=== PATIENT | female | born 1950 | race Caucasian/White ===

== ENCOUNTER → 2017-02-17 | Outpatient (CLI) | payer MEDICARE | END | disposition home or self-care (01) | LOC: PCVCCLINIC 12:59 | PROVIDERS: ATTEND Internal Medicine Cardiovascular Disease | DX: I25.10 Atherosclerotic heart disease of native coronary artery without angina pectoris (principal); E78.00 Pure hypercholesterolemia, unspecified; I10 Essential (primary) hypertension; M19.90 Unspecified osteoarthritis, unspecified site; I45.89 Other specified conduction disorders; Z90.49 Acquired absence of other specified parts of digestive tract; Z96.653 Presence of artificial knee joint, bilateral; Z96.642 Presence of left artificial hip joint; Z87.891 Personal history of nicotine dependence; Z79.82 Long term (current) use of aspirin | CPT/HCPCS: 36415; 93005; G0463 ==

== ENCOUNTER → 2017-02-19 | Outpatient (CLI) | payer MEDICARE ==
--- NOTE | 2017-02-19 15:56 | PCVCIMAG ---
APPROVED REPORT Study performed: 02/19/2017 14:39:26 EXAM: Comprehensive 2D, Doppler, and color-flow Echocardiogram Patient Location: Echo lab Status: routine BSA: 2.17 HR: 70 bpmBP: 136/86 mmHg Rhythm: NSR Risk Factors: Cardiac Risk Factors: HTN, Hyperlipidemia Indications Pre-Op Dyspnea CAD 2D Dimensions LVEF(%): 47.44 (>50%) IVSd: 7.23 (7-11mm)LVOT Diam: 25.64 (18-24mm) LVDd: 51.37 mm PWd: 7.11 (7-11mm)Ascending Ao: 32.82 (22-36mm) LVDs: 39.07 (25-40mm) Left Atrium: 29.88 (27-40mm) Aortic Root: 29.12 mm LV Single Plane 4CH: 52.79 % LV Single Plane 2CH: 53.63 %Carranza's LVEF: 53.21 % Biplane EF: 53.6 % Volumes Left Atrial Volume (Systole) Single Plane 4CH: 27.33 mLSingle Plane 2CH: 48.50 mL Biplane LA Volume: 38.00 mLLA ESV Index: 18.00 mL/m2 Aortic Valve AoV Peak Bossman.: 1.26 m/s AO Peak Gr.: 6.36 mmHgLVOT Max P.18 mmHg LVOT Max V: 1.14 m/s SUZAN Vmax: 4.66 cm2 Mitral Valve E/A Ratio: 0.7 MV Decel. Time: 205.53 ms MV E Max Bossman.: 0.54 m/s MV A Bossman.: 0.79 m/s IVRT: 83.04 ms TDI E/Lateral E': 13.50E/Medial E': 6.00 Medial E' Bossman.: 0.09 m/s Lateral E' Bossman.: 0.04 m/s Pulmonary Valve PV Peak Bossman.: 0.72 m/sPV Peak Gr.: 2.09 mmHg Pulmonary Vein P Vein S: 0.50 m/sP Vein A: 0.30 m/s P Vein D: 0.47 m/sP Vein A Dur.: 72.7 msec P Vein S/D Ratio: 1.06 Tricuspid Valve TR Peak Bossman.: 1.22 m/s TR Peak Gr.: 5.94 mmHg TV Vmax: 0.49 m/sPA Pressure: 13.00 mmHg Left Ventricle The left ventricle is normal size. There is normal LV segmental wall motion. There is normal left ventricular wall thickness. Left ventricular systolic function is normal. The left ventricular ejection fraction is within the normal range. LVEF is 50-55%. Grade I - abnormal relaxation pattern. Right Ventricle The right ventricle is normal size. The right ventricular systolic function is normal. Atria The left atrium size is normal. The right atrium size is normal. Aortic Valve The aortic valve is normal in structure. No aortic regurgitation is present. There is no aortic valvular stenosis. Mitral Valve The mitral valve is normal in structure. There is no mitral valve regurgitation noted. No evidence of mitral valve stenosis. Tricuspid Valve The tricuspid valve is normal in structure. Trace tricuspid regurgitation with a PA pressure of 13 mmHg. Pulmonic Valve The pulmonary valve is normal in structure. There is no pulmonic valvular regurgitation. Great Vessels Aortic root is mildly dilated without aortic regurgitation. The ascending aorta is normal in size. IVC is normal in size and collapses >50% with inspiration. Pericardium There is no pericardial effusion. There is no pleural effusion. <Conclusion> The left ventricle is normal size. Left ventricular systolic function is normal. Grade I - abnormal relaxation pattern. The right ventricle is normal size. The left atrium size is normal. There is no aortic valvular stenosis. The mitral valve is normal in structure. Trace tricuspid regurgitation with a PA pressure of 13 mmHg.
== END | disposition home or self-care (01) ==
LOC: PCVCIMAG 14:31
PROVIDERS: ATTEND Internal Medicine Cardiovascular Disease
DX: Z01.810 Encounter for preprocedural cardiovascular examination (principal); I07.1 Rheumatic tricuspid insufficiency; I25.10 Atherosclerotic heart disease of native coronary artery without angina pectoris; I10 Essential (primary) hypertension; E78.5 Hyperlipidemia, unspecified
CPT/HCPCS: 93306

== ENCOUNTER → 2017-12-23 | Outpatient (CLI) | payer MEDICARE | END | disposition home or self-care (01) | LOC: PCVCCLINIC 12:59 | DX: I25.10 Atherosclerotic heart disease of native coronary artery without angina pectoris (principal); I10 Essential (primary) hypertension; E78.00 Pure hypercholesterolemia, unspecified; Z87.891 Personal history of nicotine dependence; Z79.899 Other long term (current) drug therapy; Z79.82 Long term (current) use of aspirin | CPT/HCPCS: 36415; 93005; G0463 ==

== ENCOUNTER → 2019-01-12 | Outpatient (CLI) | payer MEDICARE | END | disposition home or self-care (01) | LOC: PCVCCLINIC 14:00 | PROVIDERS: ATTEND Internal Medicine Cardiovascular Disease | DX: I25.10 Atherosclerotic heart disease of native coronary artery without angina pectoris (principal); I10 Essential (primary) hypertension; E78.00 Pure hypercholesterolemia, unspecified; R60.9 Edema, unspecified; M19.90 Unspecified osteoarthritis, unspecified site; E78.5 Hyperlipidemia, unspecified; Z87.891 Personal history of nicotine dependence; Z79.82 Long term (current) use of aspirin | CPT/HCPCS: 93005; G0463 ==